=== PATIENT | female | born 1955 | race Caucasian/White ===

== ENCOUNTER 2019-05-04 12:24 | Emergency (ER) | payer OTHER ==
[~2019-05-04] VITALS: Ht 165.1 cm; Wt 95.7 kg
[~2019-05-04 12:24] MED LIST: ACID CONTROL150 MG PO; ANTACID168 MG PO; ASPIRIN EC325 MG PO; BENADRYL A12.5 MG/5 PO; EMU-LAC HYDRAT120 ML TOP; GABAPENTIN600 MG PO; GAVISCON 80-141 EACH PO; HEALTHYLAX17 GM PO; HYDROMORPHONE HC4 MG PO; SENNA LAX8.6 MG PO; TYLENOL EXTRA500 MG PO; VALACYCLOVIR1000 MG PO; VANCOCIN HCL125 MG PO
--- OUTSIDE RECORDS SUMMARY | 2019-05-04 12:28 | XMS ---
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 Eva VISIT COUNT (12 MO.) 3 [facility] TOTAL 3 NOTE: Visits indicate total known visits. ED/UCC VISIT TRACKING (12 MO.) 05/04/2019 12:25 [facility] TYPE: Emergency COMPLAINT: - DIAHREA, NAUSEA 04/17/2019 08:34 [facility] TYPE: Emergency COMPLAINT: - ABD ISSUES POST OP DIAGNOSES: - Allergy status to narcotic agent status - Enterocolitis due to Clostridium difficile, not specified as recurrent - Allergy status to other antibiotic agents status - Latex allergy status - Diarrhea, unspecified - Other [facility] - Personal history of nicotine dependence 04/02/2019 07:30 [facility] TYPE: Emergency COMPLAINT: - MULTIPLE COMPLAINTS DIAGNOSES: - Allergy status to other antibiotic agents status - Allergy status to narcotic agent status - Elevated white blood cell count, unspecified - Latex allergy status - Diarrhea, unspecified - 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
[2019-05-04] MEDS ORDERED: ZANTAC150 MG PO (12:43)
[2019-05-04] MEDS ORDERED: PROBIOTIC1 EAC6 PO (12:44)
[2019-05-04] MEDS ORDERED: VANCOCIN HCL125 MG PO (14:04)
== END 2019-05-04 14:24 | disposition home or self-care (01) ==
LOC: ED 12:24
DX: A04.71 Enterocolitis due to Clostridium difficile, recurrent (principal); Z87.891 Personal history of nicotine dependence; Z91.040 Latex allergy status; Z88.5 Allergy status to narcotic agent; Z88.1 Allergy status to other antibiotic agents; Z79.899 Other long term (current) drug therapy
CPT/HCPCS: 99283